=== PATIENT | female | born 1985 | race Caucasian/White ===

== ENCOUNTER 2017-08-26 14:03 | Day surgery (SDC) | payer OTHER ==
[~2017-08-26 14:03] MED LIST: DEXAMETHASONE SOD PHOS 20 MG/5 ML VIAL. ONE; GABA600T2 PO; LIDOCAINE 2% PF Vial for OR 5 ML VIAL. ONE; METF500T4 PO; MIDAZOLAM HCL/PF 2 MG/2 ML VIAL. ONE; MORPHINE SULFATE 10 MG/ML VIAL. ONE; ONDANSETRON PF 4 MG/2 ML VIAL. ONE; PROPOFOL 20 ML IV ONE; ROCURONIUM 50 MG/5 ML VIAL. ONE; fentaNYL PF VIAL 100 MCG/2 ML VIAL ONE
[2017-08-26] MEDS ORDERED: SUCCINYLCHOLINE 200 MG/10 ML VIAL. ONE (14:24)
[2017-08-26] MEDS ORDERED: IV RINGERS,LACTATED 1000ML 1,000 ML IV SCH ×2 (14:41→15:04)
[2017-08-26 14:45] LABS: BASO # 0.2 x10^3/uL (0.0-0.2); BASO % 1 % (0-3); EOS % 1 % (0-3); HEMATOCRIT 43.6 % (36.0-47.0); HEMOGLOBIN 14.8 g/dL (12.0-15.5); LYMPH % 18 % (24-48); MEAN CORPUSCULAR HEMOGLOBIN 32 pg (25-35); MEAN CORPUSCULAR HGB CONC 34 g/dL (31-37); MEAN CORPUSCULAR VOLUME 95 fL (79-100); MONO % 4 % (0-9); NEUT % 76 % (31-73); PLATELET COUNT 202 x10^3/uL (140-400); RED CELL DISTRIBUTION WIDTH 14.2 % (11.5-14.5); WHITE BLOOD COUNT 16.8 x10^3/uL (4.0-11.0)
[2017-08-26] MEDS ORDERED: LIDOCAINE 1% PF 2 ML VIAL. ID PRN ×2 (14:45→15:15)
[2017-08-26] MEDS ORDERED: MIDAZOLAM HCL/PF 2 MG/2 ML VIAL. IV PRN (14:45)
[2017-08-26] MEDS ORDERED: fentaNYL PF VIAL 100 MCG/2 ML VIAL IV PRN ×3 (14:45→15:15)
[2017-08-26 15:05] LABS: NEG OBC UR NEG; POS OBC UR POS
[2017-08-26] MEDS ORDERED: PROCHLORPERAZINE 10 MG/2 ML VIAL. IV PRN (15:15)
[2017-08-26] MEDS ORDERED: HYDROmorphone 2 MG/ML VIAL IV PRN (15:15)
[2017-08-26] MEDS ORDERED: ONDANSETRON PF 4 MG/2 ML VIAL. IV PRN (15:15)
[2017-08-26] MEDS ORDERED: MORPHINE SULFATE 4 MG/ML DISP.SYRIN. IV PRN (15:15)
[2017-08-26] MEDS ORDERED: BUPIVAC MPF-EPI 0.5%-1:200000 30 ML VIAL. ONE (15:20)
[2017-08-26] MEDS ORDERED: METHYLENE BLUE 1% 10 ML VIAL. ONE (15:49)
[2017-08-26] MEDS ORDERED: ONDANSETRON PF 4 MG/2 ML VIAL. ONE (16:04)
[2017-08-26] MEDS ORDERED: SEVOFLURANE 31 TO 60 MINUTES. IH ONE (16:04)
[2017-08-26] MEDS ORDERED: SURGICEL HEMOSTAT 4X8 EACH. ONE (16:05)
--- NOTE | 2017-08-26 16:21 | PDOC ---
BRIEF OPERATIVE NOTE Date: Aug 26, 2017 Pre-Op Diagnosis recurrent pilonidal abscess Post-Op Diagnosis same Procedure Performed excisional debridement of skin and subcutaneous tissue, down to muscle Surgeon Stephon Anesthesia Type: General Blood Loss 25cc IV Fluid 300cc Specimens Obtained cultures Findings abscess cavity, hair Complications none VIKAS KEITH MD Aug 26, 2017 16:21
--- NOTE | 2017-08-26 16:27 | DISCH ---
DISCHARGE INSTRUCTIONS Condition on Discharge Condition on Discharge: Stable Activity After Discharge Activity Instructions for Disc: Activity as tolerated, Avoid exertion Driving Instructions after Dis: Do not drive today Diet after Discharge Diet after Discharge: Regular Wound Incision Care Wound/Incision Care: Ice to area for comfort Other wound/incision instructi: leave dressing on Follow-Up Follow Up With: Stephon 08/29 VIKAS KEITH MD Aug 26, 2017 16:27
[2017-08-26] MEDS ORDERED: fentaNYL PF VIAL 100 MCG/2 ML VIAL ONE (16:38)
[2017-08-26] MEDS: fentaNYL PF VIAL 100 MCG/2 ML VIAL IV PRN ×2 (16:51→17:09)
[2017-08-26] MEDS ORDERED: oxyCODONE/APAP 7.5/325 1 TAB TABLET PO ONE (17:30)
[2017-08-26 17:31] LABS: % EOS 1 % (0-5); PLT ESTIMATE ADEQUATE (ADEQUATE)
[2017-08-26] MEDS ORDERED: OXYC-327 PO (17:41)
[2017-08-26] MEDS ORDERED: AMOX1TAB61 PO (17:42)
[2017-08-26] MEDS ORDERED: SODI473S25 MC (17:44)
[2017-08-26] MEDS ORDERED: DOCU-150 PO (17:45)
[2017-08-26 17:55] VITALS: BP 102/52
--- NOTE | 2017-08-29 16:16 | OP ---
DATE OF SURGERY: 08/26/2017 PREOPERATIVE DIAGNOSIS: Recurrent pilonidal abscess. POSTOPERATIVE DIAGNOSIS: Recurrent pilonidal abscess. PROCEDURE: Excisional debridement of skin and subcutaneous tissue down to the muscle. SURGEON: Vikas Keith MD ANESTHESIA: General. ESTIMATED BLOOD LOSS: 25. INTRAVENOUS FLUIDS: 300. INDICATIONS: The patient is a 32-year-old with recurrent abscess in the supragluteal cleft, brought for excision. DESCRIPTION OF PROCEDURE: The patient brought to the operating suite, given a general endotracheal anesthetic, placed in the prone jackknife position. The area was prepped and draped in usual sterile fashion. Methylene blue was inserted into the cavity to assess extent of the process. 0.5% Marcaine with epinephrine was then infiltrated around the process. Incision was made in the skin and underlying process removed en bloc. Wound was cultured. I then irrigated, evacuated and checked for adequate hemostasis. When present and a correct sponge count was obtained, the wound was dressed with half-inch plain Nu Gauze soaked in saline. Sterile dressing applied. The patient taken out of the prone position, awakened from her anesthetic and taken to the recovery room in satisfactory condition. VIKAS KEITH MD DR: AURELIANO/rhonda JOB#: [id number] / [id number]
--- NOTE | 2017-08-30 15:26 | PATHOLOGY ---
PATHOLOGY REPORT * * * * * * * * FINAL DIAGNOSIS: Skin and subcutaneous tissue, supragluteal cleft incision and drainage: - Pilonidal abscess/sinus. (JPM:; 08/30/2017) REPORT ELECTRONICALLY SIGNED BY: Brandin Mays M.D. DATE/TIME: 08/30/2017 15:25 * * * * * * * * GROSS PATHOLOGY: Received in formalin labeled "Yaritza Garrido, skin and subcutaneous tissue supra-gluteal cleft" and consists of a segment of choudhury-christensen skin measuring 4 cm in length by 2.0 cm wide. The segment shows attached contiguous subcutaneous tissue which measures 5.5 cm thick. The skin surface shows a linear crease extending the entire length. No epidermal masses are identified. One side of the subcutaneous tissue shows a 1.3 cm defect exposing a cavity. The subcutaneous tissue shows focal blue dye. The specimen is inked. Sectioning reveals underlying gross fibrosis and areas of hemorrhage. There is no hair grossly identified. There is unavoidable fragmentation at time of sectioning. Hvac Lead sections are submitted A1-A5. (IBETH; 08/29/2017) INITIAL CPT CODE(S): A; 15147 Professional services [place] [address] Technical services performed by [employer] at [address] [place] [address] [address], [place] [address]. SPECIMEN(S) RECEIVED: A.Skin and subcutaneous tissue supra-gluteal cleft CLINICAL HISTORY: Pilonidal cyst/abscess PATIENT: YARITZA GARRIDO /AGE: 1108/17/1985 (Age: 32) PATIENT #: [id number] ALT CASE #: SPECIMEN COLLECTION DATE: 08/26/2017 SPECIMEN RECEIVED DATE: 08/29/2017 [facility] - [address] [place] [address] - PHONE: [phone] * * * END OF REPORT * * *
== END 2017-08-26 18:15 | disposition home or self-care (01) ==
LOC: SURG 14:03
PROVIDERS: ATTEND Surgery
DX: L05.01 Pilonidal cyst with abscess (principal); E66.9 Obesity, unspecified; F41.9 Anxiety disorder, unspecified; F32.9 Major depressive disorder, single episode, unspecified; Z86.69 Personal history of other diseases of the nervous system and sense organs; Z90.49 Acquired absence of other specified parts of digestive tract; Z87.442 Personal history of urinary calculi; Z72.89 Other problems related to lifestyle; Z72.0 Tobacco use
CPT/HCPCS: 11043; 36415; 81025; 85025; 87071; 87075; 87205; 88304; C1769; J0330; J0690; J1100; J2250; J2405; J2704; J3010; J3490; J7120; Q9968; 85007; J2270; A4461; J2001

== ENCOUNTER → 2017-09-23 | Outpatient (CLI) | payer OTHER ==
[2017-08-26 17:55] VITALS: BP 102/52
[~2017-09-23] MED LIST changes: +AMOX1TAB61 PO; -DEXAMETHASONE SOD PHOS 20 MG/5 ML VIAL. ONE; +DOCU-150 PO; -LIDOCAINE 2% PF Vial for OR 5 ML VIAL. ONE; -MIDAZOLAM HCL/PF 2 MG/2 ML VIAL. ONE; -MORPHINE SULFATE 10 MG/ML VIAL. ONE; -ONDANSETRON PF 4 MG/2 ML VIAL. ONE; +OXYC-327 PO; -PROPOFOL 20 ML IV ONE; -ROCURONIUM 50 MG/5 ML VIAL. ONE; +SODI473S25 MC; -fentaNYL PF VIAL 100 MCG/2 ML VIAL ONE
== END | disposition home or self-care (01) ==
LOC: SPEC 07:22
PROVIDERS: ATTEND Surgery
DX: L05.01 Pilonidal cyst with abscess (principal)
CPT/HCPCS: 87071; 87075; 87205

== ENCOUNTER → 2018-01-23 | Outpatient (CLI) | payer OTHER | END | disposition home or self-care (01) | LOC: KCIC MRI 12:56 | DX: M47.896 Other spondylosis, lumbar region (principal); G62.9 Polyneuropathy, unspecified; R60.0 Localized edema | CPT/HCPCS: 72148 ==

== ENCOUNTER → 2018-08-18 | Outpatient (CLI) | payer OTHER ==
[~2018-08-18] MED LIST changes: +IOHEXOL 240 MG/ML 50ML VIAL. PO ONE; +IOHEXOL 300 MG/ML 100ML VIAL. IV ONE; +METF500T16 PO; -METF500T4 PO; -OXYC-327 PO; +OXYC1TAB19 PO
--- NOTE | 2018-08-18 17:13 | RAD ---
CT Pelvis With Intravenous Contrast: History: Pilonidal cyst. Comparison: None. Technique: After administration of oral and intravenous contrast, 75 mL Omnipaque-300, CT of the pelvis was performed. Exposure: One or more of the following individualized dose reduction techniques were utilized for this examination: 1. Automated exposure control 2. Adjustment of the mA and/or kV according to patient size 3. Use of iterative reconstruction technique Findings: Urinary bladder is unremarkable. Uterus has a mildly lobulated contour, may indicate leiomyomata. Adnexa are unremarkable. The appendix is without evidence of inflammation. The visualized bowel is without evidence of obstruction or inflammation. Urinary bladder is unremarkable. No free air or significant free fluid is seen in the abdomen or pelvis. At the superior aspect of the gluteal cleft, there is an irregular fluid attenuating structure with Hounsfield units of about 25. Fluid collection is estimated to measure 3.0 x 3.8 cm in maximum axial dimension by 5.9 cm in craniocaudal dimension. This structure appears confined to the subcutaneous soft tissues and is compatible with provided history of pilonidal cyst. Impression: 1. Subcutaneous complex fluid appearing structure at the superior aspect of the gluteal cleft. Lesion is estimated to measure 3.0 x 3.8 x 5.9 cm and is compatible with provided history of pilonidal cyst. 2. Question uterine leiomyomata. Electronically signed by: Camacho Zimmerman MD (08/18/2018 5:09 PM) [place] [id number]
== END | disposition home or self-care (01) ==
LOC: CT 14:06
PROVIDERS: ATTEND Surgery
DX: L05.01 Pilonidal cyst with abscess (principal); J45.909 Unspecified asthma, uncomplicated; Z87.891 Personal history of nicotine dependence
CPT/HCPCS: 74170; Q9966; Q9967

== ENCOUNTER → 2018-10-13 | Outpatient (CLI) | payer OTHER ==
[~2018-10-13] MED LIST changes: -IOHEXOL 240 MG/ML 50ML VIAL. PO ONE; -IOHEXOL 300 MG/ML 100ML VIAL. IV ONE
== END | disposition home or self-care (01) ==
LOC: SPEC 07:53
PROVIDERS: ATTEND Surgery
DX: L05.01 Pilonidal cyst with abscess (principal)
CPT/HCPCS: 87071; 87075

== ENCOUNTER 2021-09-03 07:30 | Observation (INO) | payer OTHER ==
[~2021-09-03] VITALS: Ht 165.1 cm; Wt 114.0 kg
[2021-09-03] VITALS (11 sets, daily range): BP systolic 87–145; BP diastolic 43–73
[~2021-09-03 07:30] MED LIST changes: -DOCU-150 PO; +DOCU-158 PO; -GABA600T2 PO; +GABA600T7 PO; +HYDROmorphone 2 MG/ML VIAL IVP PRN; +PROCHLORPERAZINE 10 MG/2 ML VIAL. IVP PRN; +fentaNYL PF VIAL 100 MCG/2 ML VIAL IVP PRN
[2021-09-03] MEDS ORDERED: GABA600T7 PO (08:05)
[2021-09-03] MEDS ORDERED: PREG300C PO (08:07)
[2021-09-03] MEDS ORDERED: TIZA-75 PO (08:08)
[2021-09-03] MEDS ORDERED: LIDOCAINE 2% PF 5 ML VIAL. ONE (08:39)
[2021-09-03] MEDS ORDERED: fentaNYL PF VIAL 250 MCG/5 ML VIAL ONE (08:39)
[2021-09-03] MEDS ORDERED: BUPIVACAINE-EPI 0.25% 30 ML VIAL KIT. ONE (08:39)
[2021-09-03] MEDS ORDERED: MIDAZOLAM HCL/PF 2 MG/2 ML VIAL. ONE (08:39)
[2021-09-03] MEDS ORDERED: SURGICEL HEMOSTAT 4X8 EACH. ONE (08:39)
[2021-09-03] MEDS ORDERED: PROPOFOL 10 MG/ML (20ML) VIAL. IV ONE ×2 (08:39→11:23)
[2021-09-03] MEDS ORDERED: ESTROGENS, CONJ VAGINAL CREAM 30GM TUBE. ONE (08:39)
[2021-09-03] MEDS ORDERED: INDIGOTINDISULFONATE SODIUM 40 MG/5 ML AMPUL. ONE (08:40)
[2021-09-03] MEDS ORDERED: LIDOCAINE 1%/EPI 1:100,000 20 ML VIAL. ONE ×2 (08:40)
[2021-09-03] MEDS ORDERED: ROCURONIUM 50 MG/5 ML VIAL. ONE ×2 (08:40→09:52)
[2021-09-03] MEDS: IV RINGERS,LACTATED 1000ML 1,000 ML IV SCH ×3 (08:41→13:36)
[2021-09-03 09:18] LABS: BASO # 0.1 x10^3/uL (0.0-0.2); BASO % 1 % (0-3); EOS # 0.2 x10^3/uL (0.0-0.7); EOS % 1 % (0-3); HEMOGLOBIN 13.8 g/dL (12.0-15.5); LYMPH # 2.6 x10^3/uL (1.0-4.8); LYMPH % 17 % (24-48); MEAN CORPUSCULAR HEMOGLOBIN 33 pg (25-35); MEAN CORPUSCULAR HGB CONC 34 g/dL (31-37); MEAN CORPUSCULAR VOLUME 97 fL (79-100); MONO # 0.5 x10^3/uL (0.0-1.1); MONO % 3 % (0-9); NEUT # 11.7 x10^3/uL (1.8-7.7); NEUT % 78 % (31-73); PLATELET COUNT 213 x10^3/uL (140-400); RED BLOOD COUNT 4.25 x10^6/uL (3.50-5.40); RED CELL DISTRIBUTION WIDTH 15.5 % (11.5-14.5)
[2021-09-03] MEDS ORDERED: ONDANSETRON PF 4 MG/2 ML VIAL. ONE ×2 (09:18→10:31)
[2021-09-03] MEDS ORDERED: HYDROcodone/APAP 5/325MG 1 TAB TABLET ONE (09:18)
[2021-09-03] MEDS ORDERED: SUGAMMADEX SODIUM 200 MG/2 ML VIAL. IVP ONE (10:15)
[2021-09-03] MEDS ORDERED: DEXAMETHASONE SOD PHOS 4 MG/ML VIAL ONE (10:31)
[2021-09-03] MEDS ORDERED: SEVOFLURANE 61 TO 120 MINUTES. IH ONE (10:31)
[2021-09-03] MEDS ORDERED: KETOROLAC 30 MG/ML VIAL. ONE (10:43)
[2021-09-03 10:56] LABS: % ATYL 2 % (0-0); % BANDS 4 % (0-9); % EOS 3 % (0-5); % LYMPHS 23 % (24-48); % MONOS 5 % (0-10); % MYELOS 1 % (0-0); % SEGS 62 % (35-66); PLT ESTIMATE ADEQUATE (ADEQUATE)
--- NOTE | 2021-09-03 11:41 | PDOC4 ---
BRIEF OPERATIVE NOTE Date: Sep 03, 2021 Pre-Op Diagnosis 1. AUB 2. Fibroids 3. Menorrhagia 4. YOLY Post-Op Diagnosis Same Procedure Performed 1. LAVH & BSO 2. Bladder Sling Surgeon Dr. Lan Jig Grinder Chronic Manager: Corwin Anesthesia Type: General Blood Loss 700 ml Specimens Obtained cervix, uterus, amberly. fallopian tubes and amberly. ovaries Findings enlarged, fibroid uterus, nml fallopian tubes and ovaries amberly., YOLY Complications none Operative Note see dictation RUDI LAN Jr, MD Sep 03, 2021 11:41
[2021-09-03] MEDS ORDERED: SIMETHICONE 80 MG TAB.CHEW PO PRN (11:45)
[2021-09-03] MEDS ORDERED: diphenhydrAMINE 50 MG/ML VIAL IV PRN (11:45)
[2021-09-03] MEDS ORDERED: ONDANSETRON PF 4 MG/2 ML VIAL. IV PRN (11:45)
[2021-09-03] MEDS ORDERED: CALCIUM CARBONATE 500 MG TAB.CHEW PO PRN (11:45)
[2021-09-03] MEDS ORDERED: diphenhydrAMINE HCL 25 MG CAPSULE PO PRN (11:45)
[2021-09-03] MEDS ORDERED: PROCHLORPERAZINE 10 MG/2 ML VIAL. IV PRN (11:45)
[2021-09-03] MEDS ORDERED: OPIUM/BELLADONNA 30/16.2MG SUPP.RECT. PR PRN (11:45)
[2021-09-03] MEDS ORDERED: DEXTROSE 50% 25 GM / 50ML DISP.SYRIN. IV PRN (11:45)
[2021-09-03] MEDS ORDERED: ZOLPIDEM 5 MG TABLET. PO PRN (11:45)
[2021-09-03] MEDS ORDERED: MORPHINE SULFATE 2 MG/ML INJ. ONE ×2 (11:46→13:01)
[2021-09-03] MEDS: MORPHINE SULFATE 2 MG/ML INJ. IVP PRN ×3 (12:32→13:06)
[2021-09-03] MEDS: 0.9 % SODIUM CHLORIDE 10 ML DISP.SYRIN. IV PRN ×2 (12:33→13:37)
--- NOTE | 2021-09-03 12:39 | OP ---
DATE OF SURGERY: 09/03/2021 PREOPERATIVE DIAGNOSES: 1. Abnormal uterine bleeding. 2. Fibroids. 3. Menorrhagia. 4. Stress urinary incontinence. POSTOPERATIVE DIAGNOSES: 1. Abnormal uterine bleeding. 2. Fibroids. 3. Menorrhagia. 4. Stress urinary incontinence. PROCEDURE: 1. LAVH, BSO. 2. Bladder sling. SURGEON: Jose Lan MD. GEOSPATIAL SPECIALIST: Corwin. ANESTHESIA: GETA. ESTIMATED BLOOD LOSS: 700 mL. COMPLICATIONS: None. FINDINGS: Enlarged fibroid uterus, normal fallopian tubes and ovaries bilaterally and stress urinary incontinence. SUMMARY: A 36-year-old female with long history of stress urinary incontinence as well as fibroid uterus with abnormal uterine bleeding and menorrhagia, requiring LAVH, BSO and bladder sling placement. The patient also has genetic factor, which makes her elevated risk for breast cancer and ovarian cancer with the BRCA2 gene. The patient was counseled on the risks, benefits and expectations of surgery and voiced clear understanding to proceed. DESCRIPTION OF PROCEDURE: The patient was taken to surgery suite and placed in dorsal lithotomy position, was prepped with Betadine solution for vaginal prep and ChloraPrep for abdominal prep. After adequate anesthesia, bivalve speculum was placed vaginally. Anterior lip of the cervix grasped with single tooth tenaculum. Valtchev uterine manipulator was then placed. The bivalve speculum was removed and attention was now placed on abdomen. Left upper quadrant incision was made with a scalpel in which the Veress needle was then placed. Abdomen was then insufflated to 1-1/2 liters CO2 gas. The Veress needle was then removed. A 5 mm trocar was placed. Scope was positioned. The uterus was enlarged with multiple fibroids. Second incision was made just below the umbilicus with a scalpel in which a 5 mm trocar was placed. Two additional incisions in the left lower quadrant were made with a scalpel in which 5 mm trocars were placed here as well. With aid of the graspers and EnSeal device, the right infundibulopelvic ligament was coagulated and cut. The right round ligament was also coagulated and cut. Same process took place with left adnexa. We then proceeded vaginally. Weighted speculum and curved Nelson placed vaginally. The Valtchev uterine manipulator and single tooth tenaculum were removed. Maryjo clamps were placed on the anterior and posterior lip of the cervix. One percent lidocaine with epinephrine was injected in a circumferential manner. Bovie cautery was utilized to circumscribe the cervix. The vaginal mucosa was dissected away from the lower uterine segment using blunt dissection and moist Ray-Tiesha. Parametrial tissue and cardinal ligaments were clamped bilaterally with curved Meme clamps, cut and suture ligated with 2-0 Vicryl suture. Posterior cul-de-sac was entered sharply with curved Sibley scissors. Long weighted speculum was then placed. The uterosacral ligaments were clamped bilaterally, cut, and suture ligated. We then entered anteriorly with blunt dissection. Uterus was then retroverted and the coring method was utilized to downsize the uterus for better visibility. Two additional pedicles were taken just adjacent to the uterus which were clamped with curved Mmee clamps, cut and suture ligated. Cervix, uterus, bilateral fallopian tubes and bilateral ovaries were then removed in their entirety. A modified Vickers's culdoplasty was performed using 0 Vicryl suture incorporating uterosacral ligaments bilaterally. The pedicles appeared hemostatic. The remainder of the vaginal cuff was reapproximated using 2-0 Vicryl suture in [id number] manner. We then proceeded with the bladder sling placement in which an Allis clamp was placed 1 cm below the urethral orifice. A second Allis clamp was placed at the midline and anterior vaginal wall mucosa about 2 cm below the first Allis clamp. One percent lidocaine with epinephrine was injected in a linear fashion between the 2 Allis clamps as well as in the periurethral space. A scalpel was utilized to make a vertical incision between the 2 Allis clamps. Metzenbaum scissors was utilized to dissect the vaginal mucosa away from the vaginal vesicle fascia bilaterally exposing the periurethral space all the way to the obturator foramen bilaterally. An incision was made at the level of the clitoris where the abductus longus attached to the pubic rami bilaterally with the scalpel. The Obtryx II trocar was then placed through the patient's right groin incision, guided with my index finger around the pubic ramus and out through the anterior vaginal wall and through the periurethral space. The mesh was then attached and the trocar was removed in the opposite fashion. Same process took place to the left trocar. Cystoscopy was performed in which the bladder appeared normal. No evidence of perforation or injury. No evidence of mesh. The scope was then removed. The mesh was adjusted with the size #7 Hegar dilator to a loose fit. The exposed mesh at the level of skin was excised with suture scissors. The entry points on the groin regions were reapproximated using Dermabond. The anterior vaginal mucosa was reapproximated using 2-0 Vicryl suture in [id number] manner. Moist vaginal packing was placed. Winter catheter was placed, elicited clear yellow urine. We then proceeded to the abdomen again. The abdomen was once again insufflated to 1-1/2 liters of CO2 gas. Scope was positioned. The pedicles were visualized and hemostatic, was verified with suction irrigation. A small amount of saline was left in posterior cul-de-sac. The trocars were then removed under direct visualization. The abdomen was allowed to deflate as much as possible along with mechanical manipulation. The foreskin incisions were reapproximated using 4-0 Vicryl suture in subcuticular manner. Quarter percent Marcaine with epinephrine was injected at each incision site. The patient tolerated the procedure well and was taken to recovery room in stable condition. Sponge and needle count correct x 3. FERNANDO/JIM DR: FERNANDO/rhonda TID: [id number]
[2021-09-03] MEDS: GABAPENTIN 300 MG CAPSULE. PO SCH ×2 (14:00→21:41)
[2021-09-03] MEDS: KETOROLAC 30 MG/ML VIAL. IV PRN ×2 (17:09→23:07)
[2021-09-03] MEDS: oxyCODONE/APAP 5/325 1 TAB TABLET PO PRN ×2 (17:16→21:41)
[2021-09-04] MEDS: IV RINGERS,LACTATED 1000ML 1,000 ML IV SCH ×3 (01:16→08:24)
[2021-09-04] MEDS: oxyCODONE/APAP 5/325 1 TAB TABLET PO PRN ×3 (03:03→13:18)
[2021-09-04 03:10] VITALS: BP 95/49
[2021-09-04] MEDS: GABAPENTIN 300 MG CAPSULE. PO SCH (05:55)
[2021-09-04] MEDS: KETOROLAC 30 MG/ML VIAL. IV PRN ×2 (05:55→11:38)
[2021-09-04 07:22] LABS: BASO % 0 % (0-3); EOS % 0 % (0-3); HEMATOCRIT 29.5 % (36.0-47.0); HEMOGLOBIN 9.6 g/dL (12.0-15.5); LYMPH # 2.1 x10^3/uL (1.0-4.8); LYMPH % 17 % (24-48); MEAN CORPUSCULAR HEMOGLOBIN 32 pg (25-35); MEAN CORPUSCULAR HGB CONC 33 g/dL (31-37); MEAN CORPUSCULAR VOLUME 97 fL (79-100); MONO # 0.5 x10^3/uL (0.0-1.1); MONO % 4 % (0-9); NEUT # 9.6 x10^3/uL (1.8-7.7); NEUT % 78 % (31-73); PLATELET COUNT 197 x10^3/uL (140-400); RED BLOOD COUNT 3.03 x10^6/uL (3.50-5.40); RED CELL DISTRIBUTION WIDTH 15.8 % (11.5-14.5); WHITE BLOOD COUNT 12.3 x10^3/uL (4.0-11.0)
[2021-09-04 08:20] VITALS: BP 105/58
--- NOTE | 2021-09-04 08:30 | PDOC ---
SURGICAL PROGRESS NOTE DATE: 09/04/21 TIME: 08:29 Subjective Pt. feeling well. Tolerating liquids. Pain controlled. Vital Signs Vital Signs Date Time Temp Pulse Resp B/P (MAP) Pulse Ox O2 Delivery O2 Flow Rate FiO2 09/04/21 08:28 20 98 Nasal Cannula 2.0 09/04/21 03:10 98.5 85 95/49 (64) 98.5 I&O Intake and Output 09/04/21 07:00 Intake Total 4139 ml Output Total 1440 ml Balance 2699 ml Intake Oral 240 ml IV Total 2050 ml Other 1849 ml Output Urine Total 740 ml Estimated Blood Loss 700 ml PATIENT HAS A NAJERA: Yes General: Alert, Oriented X3, Cooperative HEENT: Atraumatic Lungs: Clear to auscultation Heart: Regular rate Abdomen: Soft, No tenderness, No masses Psych/Mental Status: Mental status NL Labs Laboratory Tests Test 09/03/21 07:47 09/03/21 08:50 09/04/21 07:00 Bedside Urine HCG, Qualitative Hcg negative (Negative) White Blood Count 15.0 x10^3/uL (4.0-11.0) 12.3 x10^3/uL (4.0-11.0) Red Blood Count 4.25 x10^6/uL (3.50-5.40) 3.03 x10^6/uL (3.50-5.40) Hemoglobin 13.8 g/dL (12.0-15.5) 9.6 g/dL (12.0-15.5) Hematocrit 41.0 % (36.0-47.0) 29.5 % (36.0-47.0) Mean Corpuscular Volume 97 fL (79-100) 97 fL (79-100) Mean Corpuscular Hemoglobin 33 pg (25-35) 32 pg (25-35) Mean Corpuscular Hemoglobin Concent 34 g/dL (31-37) 33 g/dL (31-37) Red Cell Distribution Width 15.5 % (11.5-14.5) 15.8 % (11.5-14.5) Platelet Count 213 x10^3/uL (140-400) 197 x10^3/uL (140-400) Neutrophils (%) (Auto) 78 % (31-73) 78 % (31-73) Lymphocytes (%) (Auto) 17 % (24-48) 17 % (24-48) Monocytes (%) (Auto) 3 % (0-9) 4 % (0-9) Eosinophils (%) (Auto) 1 % (0-3) 0 % (0-3) Basophils (%) (Auto) 1 % (0-3) 0 % (0-3) Neutrophils # (Auto) 11.7 x10^3/uL (1.8-7.7) 9.6 x10^3/uL (1.8-7.7) Lymphocytes # (Auto) 2.6 x10^3/uL (1.0-4.8) 2.1 x10^3/uL (1.0-4.8) Monocytes # (Auto) 0.5 x10^3/uL (0.0-1.1) 0.5 x10^3/uL (0.0-1.1) Eosinophils # (Auto) 0.2 x10^3/uL (0.0-0.7) 0.0 x10^3/uL (0.0-0.7) Basophils # (Auto) 0.1 x10^3/uL (0.0-0.2) 0.0 x10^3/uL (0.0-0.2) Segmented Neutrophils % 62 % (35-66) Band Neutrophils % 4 % (0-9) Lymphocytes % 23 % (24-48) Atypical Lymphocytes % (Manual) 2 % (0-0) Monocytes % 5 % (0-10) Eosinophils % 3 % (0-5) Myelocytes % 1 % (0-0) Platelet Estimate Adequate (ADEQUATE) Laboratory Tests Test 09/03/21 08:50 09/04/21 07:00 White Blood Count 15.0 x10^3/uL (4.0-11.0) 12.3 x10^3/uL (4.0-11.0) Red Blood Count 4.25 x10^6/uL (3.50-5.40) 3.03 x10^6/uL (3.50-5.40) Hemoglobin 13.8 g/dL (12.0-15.5) 9.6 g/dL (12.0-15.5) Hematocrit 41.0 % (36.0-47.0) 29.5 % (36.0-47.0) Mean Corpuscular Volume 97 fL (79-100) 97 fL (79-100) Mean Corpuscular Hemoglobin 33 pg (25-35) 32 pg (25-35) Mean Corpuscular Hemoglobin Concent 34 g/dL (31-37) 33 g/dL (31-37) Red Cell Distribution Width 15.5 % (11.5-14.5) 15.8 % (11.5-14.5) Platelet Count 213 x10^3/uL (140-400) 197 x10^3/uL (140-400) Neutrophils (%) (Auto) 78 % (31-73) 78 % (31-73) Lymphocytes (%) (Auto) 17 % (24-48) 17 % (24-48) Monocytes (%) (Auto) 3 % (0-9) 4 % (0-9) Eosinophils (%) (Auto) 1 % (0-3) 0 % (0-3) Basophils (%) (Auto) 1 % (0-3) 0 % (0-3) Neutrophils # (Auto) 11.7 x10^3/uL (1.8-7.7) 9.6 x10^3/uL (1.8-7.7) Lymphocytes # (Auto) 2.6 x10^3/uL (1.0-4.8) 2.1 x10^3/uL (1.0-4.8) Monocytes # (Auto) 0.5 x10^3/uL (0.0-1.1) 0.5 x10^3/uL (0.0-1.1) Eosinophils # (Auto) 0.2 x10^3/uL (0.0-0.7) 0.0 x10^3/uL (0.0-0.7) Basophils # (Auto) 0.1 x10^3/uL (0.0-0.2) 0.0 x10^3/uL (0.0-0.2) Segmented Neutrophils % 62 % (35-66) Band Neutrophils % 4 % (0-9) Lymphocytes % 23 % (24-48) Atypical Lymphocytes % (Manual) 2 % (0-0) Monocytes % 5 % (0-10) Eosinophils % 3 % (0-5) Myelocytes % 1 % (0-0) Platelet Estimate Adequate (ADEQUATE) Assessment/Plan A: POD#1 s/p LAVH, BSO and Bladder Sling P: Continue post op care. Bladder challenge around 1pm. D/c home later today. Justicifation of Admission Dx: Justifications for Admission: Justification of Admission Dx: Yes RUDI VICKERS Jr, MD Sep 04, 2021 08:30
[2021-09-04] MEDS ORDERED: OXYC1TAB19 PO (08:33)
[2021-09-04] MEDS ORDERED: IBUP-1060 PO (08:33)
[2021-09-04] MEDS ORDERED: DOCU-109 PO (08:33)
--- NOTE | 2021-09-04 08:35 | DISCH ---
DISCHARGE INSTRUCTIONS Condition on Discharge Condition on Discharge: Stable Activity After Discharge Activity Instructions for Disc: Activity as tolerated, Avoid exertion Lifting Instructions after Dis: No heavy lifting Driving Instructions after Dis: No driving for 2 weeks Diet after Discharge Diet after Discharge: Regular Wound Incision Care Wound/Incision Care: Ice to area for comfort Contacting the after DC Call your doctor for: Concerns you may have Follow-Up Follow up with: Dr. Lan in 2 wks. RUDI LAN Jr, MD Sep 04, 2021 08:35
[2021-09-04 12:19] VITALS: BP 101/51
--- NOTE | 2021-09-04 13:20 | NUR ---
RN to pt. bedside for voiding trial. Pt. educated about POC. Pt. verbalized understanding and agreeable to POC. 300ml of sterile water injected into bladder via serrano catheter. Pt. up to bathroom, serrano catheter removed and pt. voided 400ml of clear geoff urine. provided RN with verbal orders this am that if pt. is able to void 200ml or more post voiding trial then pt. is able to discharge home.
[2021-09-04 14:50] VITALS: BP 106/52
--- NOTE | 2021-09-04 14:51 | NUR ---
Discharge Note: YARITZA SCHULTZ L3 SO LND Discharge instructions and discharge home medications reviewed with Patient and a copy given. All questions have been answered and understanding verbalized. The following instructions and handouts were given: Anterior or Posterior Colporrhaphy, Sling Procedure, Care After Bilateral Salpingo-Oophorectomy, Care After Hysterectomy, Care After Patient discharged to home with self-care via WC to private vehicle.
--- NOTE | 2021-09-08 17:27 | PATHOLOGY ---
[facility] Accession Number: [id number] . 01 Material submitted: . uterus - UTERUS, CERVIX, BILATERAL FALLOPIAN TUBES, AND OVARIES . 01 Clinical history: . FIBROIDS LAVH BSO BLADDER SLING . 02 Diagnosis: Uterus, total hysterectomy: - Squamous metaplasia of uterine cervix; negative for dysplasia and malignancy. - Nabothian cyst formation. - Chronic cervicitis. - Secretory pattern of endometrial glands; negative for hyperplasia, atypia, and malignancy. - Leiomyoma. . Fallopian tubes "right and left", salpingectomy: - Benign fallopian tubes with Walthard rests and benign paratubal cysts. . Ovaries "right and left", oophorectomy: - Benign ovarian tissue without significant pathologic alteration. (MLK/db; 09/07/2021) LBQ 09/08/2021 1628 Local . 02 Electronically signed: . Eunice Oshea MD, Pathologist NPI- [id number] . 01 Gross description: . Fixative: Formalin Labeled: Uterus, cervix, bilateral fallopian tubes and ovaries Specimen received: Uterus received fragmented into 2 pieces. The larger portion displays attached bilateral adnexa. Uterus weight: 174 g in aggregate Uterus: Approximately 10.8 cm from fundus to cervix, 8.4 cm from cornu to cornu, and 5.5 cm from anterior to posterior, when reassembled Serosa: [place] and smooth, glistening. The uterus is fragmented at the fundus. Ectocervix: [place] and glistening with numerous ragged possible surgical defects Cervical os: Ovoid, measuring 1.7 x 1.0 cm Endocervical canal: 2.0 x 1.1 cm Endometrial cavity: Cannot be determined due to the fragmented nature of specimen Endometrial thickness: 0.3 cm Myometrial thickness: 2.1 cm Lesions/abnormalities: A possible leiomyoma is present with the myometrium, measuring 0.7 cm in greatest dimension Right fallopian tube: 8.0 cm in length, 1.0 cm in diameter, with fimbria Right fallopian tube appearance: Red-purple and displays multiple paratubal cysts ranging from 0.1-0.4 cm in greatest dimension Left fallopian tube: 7.9 cm in length, 0.9 cm in diameter, with fimbria Left fallopian tube appearance: Red-purple and displays multiple paratubal cysts ranging from 0.1-0.9 cm in greatest dimension Right ovary: 15 g, 4.0 x 3.7 x 3.1 cm Right ovary appearance: [place] and cerebriform and sectioned to reveal multiple simple cysts containing clear watery fluid and measuring 0.3-0.8 cm Left ovary: 33 g, 5.5 x 4.1 x 4.0 cm Left ovary appearance: [place] and cerebriform and sectioned to reveal multiple corpora lutea and hemorrhagic cysts ranging from 1.3-2.1 cm . Marketing Research Coordinator sections are submitted as follows: A1 12:00 cervix A2 6:00 cervix A3 anterior endomyometrium A4 posterior endomyometrium A5 endomyometrium from separate fundus fragment A6 equal opportunity representative possible leiomyoma A7-A8 right fallopian tube and entire fimbriated end A9-A10 left fallopian tube and entire fimbriated end A11-A12 right ovary A13-A15 left [place] [place] [facility] 09/04/[address] [place] [address] . 02 Pathologist provided ICD-10: D25.9, N88.8, N72, N83.8 . 02 CPT . 330035 Specimen Comment: A courtesy copy of this report has been sent to [phone], [phone] Specimen Comment: [id number] Specimen Comment: Report sent to / DR POLANCO Performed at: 01 [facility] [address] [facility] [address], [place] [id number] MD Darien Kern MD Phone: [phone] Performed at: 02 [facility] [address] [place], [place] [id number] MD Brandin Mays MD Phone: [phone]
== END 2021-09-04 14:55 | disposition home or self-care (01) ==
LOC: SURG 07:30 → 3 SO LND 11:41
PROVIDERS: ADMIT Obstetrics & Gynecology; ATTEND Obstetrics & Gynecology
DX: N93.9 Abnormal uterine and vaginal bleeding, unspecified (principal); N92.0 Excessive and frequent menstruation with regular cycle; N39.3 Stress incontinence (female) (male); D25.9 Leiomyoma of uterus, unspecified
CPT/HCPCS: 36415; 57288; 58552; 81025; 85007; 85025; 86850; 86870; 86900; 86901; 96374; 96376; A4213; A4314; A4364; A4930; A6219; C1771; G0378; G0379; J0690; J0780; J1100; J1885; J2250; J2270; J2405; J2704; J3010; J3490; J7120; A4222; A4315; A4657